=== PATIENT | female | born 1955 | race Caucasian/White ===

== ENCOUNTER → 2020-07-21 | Outpatient (CLI) | payer MEDICARE, OTHER | LOC: CT 11:03 | DX: I73.9 Peripheral vascular disease, unspecified (principal); N28.9 Disorder of kidney and ureter, unspecified | CPT/HCPCS: 36415; 75635; 82565; Q9967 ==

== ENCOUNTER → 2020-09-07 | Outpatient (CLI) | payer MEDICARE, OTHER | LOC: KOH-I 14:45 | DX: M79.671 Pain in right foot (principal) | CPT/HCPCS: 73630 ==